=== PATIENT | female | born 1970 | race Caucasian/White ===

== ENCOUNTER 2020-03-04 23:03 | Emergency (ER) | payer MEDICARE, OTHER, SELFPAY ==
[2020-03-04 23:07] VITALS: BP 120/69; PULSE 108; RESP 16; TEMP 36.5; O2SAT 100
--- NOTE | 2020-03-04 23:21 | ED.WOUNDLAC ---
HPI - Wound/Laceration General Chief Complaint: Wound/Laceration Stated Complaint: finger lac Time Seen by Provider: 03/04/20 23:10 Source: patient Mode of arrival: ambulatory Limitations: no limitations History of Present Illness HPI narrative: Patient is a 49-year-old female who presents with laceration to distal tip of left second digit. Patient reports cutting finger on slicer prior to arrival. Patient reports full flexion and extension, denies numbness or tingling. Reports last tetanus shot was approximately 2 years ago. She denies other injuries, bleeding controlled at this time with dressing. Related Data Home Medications Medication Instructions Recorded Confirmed telmisartan [Micardis] 20 mg PO HS 03/05/20 Allergies Allergy/AdvReac Type Severity Reaction Status Date / Time No Known Allergies Allergy Verified 03/05/20 00:16 Review of Systems Review of Systems: Narrative: CONSTITUTIONAL: Denies fever, chills, or sweats. EYES: Denies visual changes, redness, or discharge. ENT: Denies rhinorrhea, congestion, sore throat, or otalgia. CARDIOVASCULAR: Denies chest pain, palpitations, or edema. RESPIRATORY: Denies cough or dyspnea. GASTROINTESTINAL: Denies abdominal pain, nausea, vomiting, or diarrhea. GENITOURINARY: Denies dysuria or hematuria. SKIN: Reports laceration to left second finger MUSCULOSKELETAL: Denies back pain, joint pain, or myalgia. NEUROLOGIC: Denies headache, numbness, dizziness, or weakness. PSYCHIATRIC: Denies anxiety or depression. [facility] Past Medical History Medical History HTN (hypertension) Surgical History Surgical History H/O: Social History Social History (Updated 03/05/20 @ 00:20 by DUANE Iyer) Smoking status: Current every day smoker Tobacco type: cigarettes Alcohol intake: current Alcohol use details: occasional Substance use: never Living arrangements: with family Exam Narrative: Exam Narrative: GENERAL: Well-appearing, well-nourished, and in no acute distress. HEAD: Normocephalic, atraumatic. EYES: No redness or drainage. ENT: Mucous membranes pink and moist. NECK: AROM. Supple. No lymphadenopathy. CHEST: No respiratory distress. HEART: Regular rate and rhythm. EXTREMITIES: Normal range of motion. No edema. SKIN: Approximately 1.5 cm flap laceration to distal tip of left 2nd digit. Full flexion and extension, distal sensation intact. NEURO: No focal deficits. Alert and oriented x3. Gait steady. PSYCH: Normal affect. No signs of depression or anxiety. Course Vital Signs Vital signs: Vital Signs Temperature 36.5 C 03/04/20 23:07 Pulse Rate 108 H 03/04/20 23:07 Respiratory Rate 16 03/04/20 23:07 Blood Pressure 120/69 03/04/20 23:07 Pulse Oximetry 100 03/04/20 23:07 Temperature 36.5 C 03/04/20 23:07 Pulse Rate 108 H 03/04/20 23:07 Respiratory Rate 16 03/04/20 23:07 Blood Pressure 120/69 03/04/20 23:07 Pulse Oximetry 100 03/04/20 23:07 Reviewed Procedures Laceration Laceration 1: Date: 03/05/20 Time: 00:20 Site: hand Side (If applicable): left Size (cm): 1.5 Description: flap Depth: simple, single layer Local Anesthetic: lidocaine 1% Amount of anesthesia used (mL): 2 Pre-repair: irrigated ====== Skin Level ====== Skin layer closed with: nylon Size (cm): 5-0 Number of sutures: 5 Technique: simple, interrupted ====== Subcutaneous Layer ====== ====== Muscle Layer ====== ====== Tendon Layer ====== MDM - Wound/Laceration MDM Narrative Medical decision making narrative: Patient's finger sutured, neosporin applied. Dressing and finger spliint. Instructions on suture removal and signs of infection discussed with patient. Patient is up to date on tetanus per
== END 2020-03-05 00:30 | disposition home or self-care (01) ==
PROVIDERS: Emergency Provider Nurse Practitioner
DX: S61.211A Laceration without foreign body of left index finger without damage to nail, initial encounter (principal); F17.210 Nicotine dependence, cigarettes, uncomplicated; W27.4XXA Contact with kitchen utensil, initial encounter; Y93.G1 Activity, food preparation and clean up
CPT/HCPCS: 12001; 99283

== ENCOUNTER 2021-05-09 17:53 | Emergency (ER) | payer MEDICARE, OTHER, SELFPAY ==
[2021-05-09 18:26] VITALS: BP 108/72; PULSE 95; RESP 18; TEMP 37.1; O2SAT 100
--- NOTE | 2021-05-09 19:21 | PC.NURSE ---
Pt to desk stating that she is wanting to leave. Encouraged to stay but reports she is wanting to go. Ambulatory when leaving in NAD.
== END 2021-05-10 03:08 | disposition left against medical advice (07) ==
LOC: ANHED 19:31
DX: Z53.21 Procedure and treatment not carried out due to patient leaving prior to being seen by health care provider (principal)
CPT/HCPCS: 99199

== ENCOUNTER 2021-05-19 07:21 | Outpatient (RCR) | payer MEDICARE, OTHER, SELFPAY ==
[2021-05-19 12:21] VITALS: BP 101/59; PULSE 94; RESP 20; TEMP 36.4; O2SAT 100
[2021-05-19] MEDS: FAMOTIDINE 20 MG TABLET PO (12:24)
[2021-05-19] MEDS: ACETAMINOPHEN 325 MG TABLET 650 MG PO (12:24)
[2021-05-19] MEDS: diphenhydrAMINE HCl CAP 25 MG CAPSULE PO (12:24)
[2021-05-19 13:54] VITALS: BP 99/62
== END 2021-05-19 17:00 ==
LOC: AMCINF 07:21
PROVIDERS: PCP Nurse Practitioner; Visit Provider Internal Medicine Hematology & Oncology
DX: U07.1 COVID-19 (principal); I10 Essential (primary) hypertension; N18.9 Chronic kidney disease, unspecified
CPT/HCPCS: A9270; M0245; Q0245